=== PATIENT | female | born 1975 | race Caucasian/White ===

== ENCOUNTER → 2017-05-10 | Outpatient (CLI) | payer BC ==
--- NOTE | 2017-05-10 13:18 | MM ---
Reason for exam: screening (asymptomatic). Baseline mammogram. Physical Findings: Nurse did not find any significant physical abnormalities on exam. MG 3D Screening Mammo W/Cad Bilateral CC and MLO view(s) were taken. The breast tissue is heterogeneously dense. This may lower the sensitivity of mammography. Nodular density left MLO view, additional views recommended. These results were verbally communicated with the patient and result sheet given to the patient on 05/10/17. ASSESSMENT: Incomplete: need additional imaging evaluation, BI-RAD 0 RECOMMENDATION: Special view mammogram and ultrasound of the left breast. [facility] will attempt to contact patient to return for supplemental views and ultrasound.
--- NOTE | 2017-05-10 13:19 | MM ---
Reason for exam: additional evaluation requested from abnormal screening. Physical Findings: Breast exam preformed at baseline screening. MG 3D Work Up W/Cad LT CC and MLO view(s) were taken of the left breast. Nodule persists, ultrasound recommended. These results were verbally communicated with the patient and result sheet given to the patient on 05/10/17. ASSESSMENT: Incomplete: need additional imaging evaluation, BI-RAD 0 RECOMMENDATION: Ultrasound of the left breast.
--- NOTE | 2017-05-10 13:21 | USB ---
Reason for exam: additional evaluation requested from abnormal screening. US Breast Workup Limited LT Left breast ultrasound demonstrates a 0.9 x 0.9 x 0.6cm oval, cystic lesion at 3 o'clock, a 0.4 x 0.7 x 0.2cm mixed lesion at 3 o'clock, a 0.5 x 0.7 x 0.4cm oval, cystic cluster at 5 o'clock, a 0.2 x 0.3 x 0.2cm oval lesion too small to characterize at 8 o'clock and a 0.6 x 0.7 x 0.3cm oval, cystic lesion at 9 o'clock. These results were verbally communicated with the patient and result sheet given to the patient on 05/10/17. ASSESSMENT: Benign, BI-RAD 2 RECOMMENDATION: Return to routine screening mammogram schedule for both breasts.
== END | disposition home or self-care (01) ==
LOC: RADMAMWWP 10:49
PROVIDERS: ATTEND Obstetrics & Gynecology
DX: Z12.31 Encounter for screening mammogram for malignant neoplasm of breast (principal); R92.8 Other abnormal and inconclusive findings on diagnostic imaging of breast
CPT/HCPCS: 77067; 77065; 77063; 76642; G0279

== ENCOUNTER → 2018-01-01 | Outpatient (CLI) | payer BC ==
[2018-01-01 08:57] LABS: Basophils # (A) 0.1 k/uL (0-0.2); Basophils % (A) 1 %; Eosinophils # (A) 0.2 k/uL (0-0.7); Eosinophils % (A) 3 %; HCT 41.6 % (34.0-46.0); HGB 13.5 gm/dL (11.4-16.0); Lymphocytes # (A) 1.6 k/uL (1.0-4.8); Lymphocytes % (A) 28 %; MCH 29.4 pg (25.0-35.0); MCHC 32.4 g/dL (31.0-37.0); MCV 90.7 fL (80.0-100.0); Mean Platelet Volume 6.8; Monocytes # (A) 0.3 k/uL (0-1.0); Monocytes % (A) 6 %; Neutrophils # (A) 3.5 k/uL (1.3-7.7); Neutrophils % (A) 61 %; Platelet Count 246 k/uL (150-450); RBC 4.59 m/uL (3.80-5.40); RDW 12.7 % (11.5-15.5); WBC 5.8 k/uL (3.8-10.6)
== END | disposition home or self-care (01) ==
LOC: LABPAT 07:14
PROVIDERS: ATTEND Obstetrics & Gynecology
DX: Z01.812 Encounter for preprocedural laboratory examination (principal); N92.1 Excessive and frequent menstruation with irregular cycle
CPT/HCPCS: 36415; 85025

== ENCOUNTER 2018-01-12 07:11 | Day surgery (SDC) | payer BC ==
[2018-01-10 08:14] VITALS: BMI 24.2
--- NOTE | 2018-01-11 11:15 | HP ---
HISTORY AND PHYSICAL DATE OF SURGERY: 01/12/2018 HISTORY OF PRESENT ILLNESS: The patient is a 6, para 2-0-2-2 who presented to the office with continuing and increasing complaints of significantly heavy and long menstrual cycles. She reports that she bleeds through protection on a fairly regular basis and her cycles are lasting for at least 7-10 days, though they are at least regular and predictable at this time. Her partner has had a vasectomy and she is interested in the NovaSure endometrial ablation. PAST MEDICAL HISTORY: None. PAST SURGICAL HISTORY: Significant for ectopic with diagnostic laparoscopy and salpingostomy in 2004 and then a foot surgery in 2008. She has had no anesthetic concerns. OBSTETRICAL HISTORY: 6, para 2-0-2-2 with 2 term vaginal deliveries without complications as well as one right ectopic and an early miscarriage not requiring the D and C. Current method of contraception is vasectomy. GYNECOLOGIC HISTORY: Unremarkable with no history of any infections to include STDs. FAMILY HISTORY: Noncontributory. SOCIAL HISTORY: Patient is and works as a teacher in the [employer]. She is a nonsmoker and denies any significant alcohol, drugs, or any other social concerns. CURRENT MEDICATIONS: None. ALLERGIES: She had some lip swelling with IBUPROFEN and also seasonal allergies. REVIEW OF SYSTEMS: Confined to history of present illness. PHYSICAL EXAMINATION: Vital signs are stable. The patient is afebrile. In general, this is a well- developed, well-nourished white female in no acute distress. Her heart has a regular rhythm and rate without murmur. Her lungs are clear to auscultation bilaterally in all fernandez. Her abdomen is nondistended, has normoactive bowel sounds, is soft, nontender, and without any palpable masses, hepatosplenomegaly, or hernias. Her extremities are without any cyanosis, clubbing, or edema and are nontender to palpation. Pelvic examination demonstrates normal external genitalia and BUS with normal vaginal mucosa and cervix. There is no cervical motion tenderness. Uterus is approximately 5 weeks in size, mid plane, mobile, nontender, normal in shape. The adnexa are normal and nontender without mass bilaterally. Endometrial biopsy performed at the time of exam demonstrated benign findings. ASSESSMENT AND PLAN: Menometrorrhagia: We did discuss options for treatment and the patient has settled on diagnostic hysteroscopy with NovaSure endometrial ablation. The risks and complications of the procedures have been discussed at length including the risk for bleeding, bleeding requiring transfusion, infection, and injury to local structures to specifically include uterine perforation, Asherman syndrome, and possible hematometra. She has understood all this and has agreed to proceed. At this time, we are scheduled for diagnostic hysteroscopy with NovaSure endometrial ablation on the morning of 01/12/2018. MMODL / IJN: [id number] /
[~2018-01-12 07:11] MED LIST: DEXAMETHASONE SOD PHOSPHATE 10 MG/ML 1 ML VIAL IV ONE; HYDROmorphone 1 MG/ML 1 ML SYRINGE IVP PRN; LACTATED RINGERS 1,000 ML IV SCH; MIDAZOLAM 2 MG/2 ML VIAL IV PRN; ONDANSETRON 4 MG/2 ML VIAL IVP ONE; Pre Op ABX Message 1 EACH MISC MISCELLANE ONE; SCOPOLAMINE 1.5MG/72HR PATCH TRANSDERM ONE
[2018-01-12] MEDS ORDERED: LIDOCAINE 1% 20 ML VIAL (10MG/ML) FOR IV START INTRADERMA ONE (07:31)
[2018-01-12] MEDS ORDERED: MIDAZOLAM 2 MG/2 ML VIAL ONE (08:25)
[2018-01-12] MEDS ORDERED: LIDOCAINE 1% INJ 10MG/ML (20 ML MDV) ONE (08:25)
[2018-01-12] MEDS ORDERED: fentaNYL (PF) 50 MCG/ML 2 ML AMP ONE (08:25)
[2018-01-12] MEDS ORDERED: PROPOFOL 10 MG/ML 20 ML VIAL IV ONE (08:25)
[2018-01-12] MEDS ORDERED: Acetaminophen-Codeine 300-30mg TAB PO PRN ×2 (08:27)
[2018-01-12] MEDS ORDERED: SIMETHICONE 80 MG CHEWABLE PO PRN (08:27)
[2018-01-12] MEDS ORDERED: METOCLOPRAMIDE 5 MG/ML 2 ML VIAL IVP PRN (08:27)
[2018-01-12] MEDS ORDERED: diphenhydrAMINE 50 MG/ML 1 ML VIAL IVP PRN (08:27)
[2018-01-12] MEDS ORDERED: ONDANSETRON 4 MG/2 ML VIAL IVP PRN (08:27)
[2018-01-12] MEDS ORDERED: LACTATED RINGERS 1,000 ML IV SCH (08:30)
--- NOTE | 2018-01-12 09:00 | P.OP ---
Date of Procedure: 01/12/18 Preoperative Diagnosis: #1. Menometrorrhagia Postoperative Diagnosis: Same Procedure(s) Performed: #1. Diagnostic hysteroscopy #2. NovaSure endometrial ablation Anesthesia: other (Gen. by LMA) Surgeon: Ellis Patel Estimated Blood Loss (ml): 5 IV fluids (ml): 350 Urine output (ml): 100 Pathology: none sent Condition: stable Disposition: PACU Operative Findings: Preoperative pelvic examination demonstrated a roughly 5 week midplane mobile normal shaped uterus with normal adnexa bilaterally. Intraoperatively, the cervix sounded to approximately 3 cm while the uterus was approximately 9 cm. The hysteroscopic view of the cavity was somewhat obscured secondary to poor lighting but the bilateral tubal ostial regions were seen. There did not appear to be any pathology throughout the cavity. The settings for the NovaSure tool where a length of 6.0 cm, a width of 4.8 cm for a total power 158 W. After a total run time of 74 seconds, the base unit read "procedure complete." The postprocedural result appeared to be excellent. The patient is a candidate for vaginal hysterectomy should it become necessary in the future. Description of Procedure: The patient was prepped and draped in usual fashion after general anesthesia was administered by the anesthesiologist. A weighted speculum was placed and the bladder drained of approximately 100 mL of clear sia urine. The anterior lip of the cervix was grasped with a single-tooth tenaculum and the uterus and cervix sounded to 9 cm and 3 cm respectively. Serial dilation was carried out to admit the diagnostic hysteroscope which was placed to the fundus and hysteroscopy performed. The bilateral tubal ostia regions weren't seen and there was no apparent pathology throughout the cavity. After the cavity been cleared of any pathology, the scope was removed and set aside and the NovaSure tool placed within the endometrial cavity, opened, and seated well. The settings are as noted above with a length of 6.0 cm, a width of 4.8 cm for total power 158 W. The cavity check was attempted and passed without difficulty. The tool was enabled and the run was started. After total run time of 74 seconds, the base unit read "procedure complete." The 2 was closed, removed, and discarded and the diagnostic hysteroscope replaced within the endometrial cavity. The result appeared to be excellent throughout. All instrumentation was then removed. Some ongoing bleeding from both tenaculum sites was made hemostatic with pressure. Estimated blood loss for the case was approximately 5 mL or less. There were no complications. All sponge, instrument, and needle counts were correct. The patient is a potential candidate for vaginal hysterectomy as there is descensus of the cervix to the opening of the vagina. The patient tolerated the procedure well and proceeded to the recovery room in stable condition.
[2018-01-12 09:07] VITALS: TEMP 98.6
[2018-01-12 09:36] VITALS: RESP 16
[2018-01-12 10:27] VITALS: BP 117/62; PULSE 72
== END 2018-01-12 10:33 | disposition home or self-care (01) ==
LOC: OR 07:11
PROVIDERS: ATTEND Obstetrics & Gynecology
DX: N92.1 Excessive and frequent menstruation with irregular cycle (principal); J30.2 Other seasonal allergic rhinitis; Z88.6 Allergy status to analgesic agent
CPT/HCPCS: 81025; 58563; J2250; J1100; J2405; J2001; J3010; J2704

== ENCOUNTER → 2021-09-30 | Outpatient (CLI) | payer BC ==
--- NOTE | 2021-10-01 14:30 | MM ---
Reason for Exam: Screening (asymptomatic). Last mammogram was performed 4 year(s) and 5 month(s) ago. Patient History: Menarche at age 14. First Full-Term at age 26. Risk Values: Jessica 5 year model risk: 0.7%. NCI Lifetime model risk: 8.7%. Prior Study Comparison: 05/10/2017 Bilateral Screening Mammogram, [facility]. 05/10/2017 Left Diagnostic Mammogram, [facility]. Tissue Density: The breast tissue is heterogeneously dense. This may lower the sensitivity of mammography. Findings: Analyzed By CAD. There is no suspicious group of microcalcifications. More prominent asymmetry in the left breast in the anterior depth on the MLO view. Overall Assessment: Incomplete: need additional imaging evaluation, BI-RAD 0 Management: Diagnostic Mammogram of the left breast. A clinical breast exam by your physician is recommended on an annual basis and results should be correlated with mammographic findings. [facility] will attempt to contact patient to return for supplemental views and ultrasound if indicated. Electronically signed and approved by: Shree Garner D.O.
== END | disposition home or self-care (01) ==
LOC: RADMAMWWP 15:02
PROVIDERS: ATTEND Obstetrics & Gynecology
DX: Z12.31 Encounter for screening mammogram for malignant neoplasm of breast (principal)
CPT/HCPCS: 77063; 77067

== ENCOUNTER → 2021-10-07 | Outpatient (CLI) | payer BC ==
--- NOTE | 2021-10-07 10:57 | MM ---
Reason for Exam: Additional evaluation requested from abnormal screening. Last screening mammogram was performed less than 1 month ago. Patient History: Menarche at age 14. First Full-Term at age 26. Risk Values: Jessica 5 year model risk: 0.7%. NCI Lifetime model risk: 8.7%. Prior Study Comparison: 05/10/2017 Bilateral Screening Mammogram, [facility]. 05/10/2017 Left Diagnostic Mammogram, [facility]. 09/30/2021 Bilateral MG 3D screening mammo w/cad, [facility]. Tissue Density: Left: The breast tissue is heterogeneously dense. This may lower the sensitivity of mammography. Findings: Analyzed By CAD. On spot 3-D images, there is a persisting oval, mildly lobulated 2.5 x 1.5 cm mass 6:00 position anterior depth. Further ultrasound evaluation is recommended. Overall Assessment: Incomplete: need additional imaging evaluation, BI-RAD 0 Management: Diagnostic Breast Ultrasound of the left breast. For the 6:00 mass or cyst. Electronically signed and approved by: Zaheer Pat M.D. Radiologist
--- NOTE | 2021-10-07 12:31 | USB ---
Reason for Exam: Additional evaluation requested from abnormal screening. Patient History: Menarche at age 14. First Full-Term at age 26. Risk Values: Jessica 5 year model risk: 0.7%. NCI Lifetime model risk: 8.7%. Prior Study Comparison: 05/10/2017 Bilateral Screening Mammogram, [facility]. 05/10/2017 Left Diagnostic Mammogram, [facility]. 09/30/2021 Bilateral MG 3D screening mammo w/cad, [facility]. Findings: The lower section of the breast of the left breast, the axilla of the left breast and the retroareolar of the left breast were scanned. Targeted scanning left breast 4-8 o'clock shows multiple benign cysts, the largest the 5:00 position, 2 cm in the nipple measures 2.3 x 1.7 x 0.7 cm. Likely mammographic correlate. Six-month follow-up mammogram recommended to reassess. No solid lesion is seen. Overall Assessment: Probably benign, BI-RAD 3 Management: Diagnostic Mammogram of the left breast in 6 months. To reassess the new mammographic mass that most likely corresponds to the benign 2.3 cm cyst on ultrasound. Continue monthly self breast exams. Electronically signed and approved by: Zaheer Pat M.D. Radiologist
== END | disposition home or self-care (01) ==
LOC: RADMAMWWP 10:18
PROVIDERS: ATTEND Obstetrics & Gynecology
DX: R92.8 Other abnormal and inconclusive findings on diagnostic imaging of breast (principal)
CPT/HCPCS: 77061; 77065

== ENCOUNTER → 2022-12-28 | Outpatient (CLI) | payer BC ==
--- NOTE | 2022-12-29 12:33 | MM ---
Reason for Exam: Screening (asymptomatic). Last mammogram was performed 1 year(s) and 3 month(s) ago. Patient History: Menarche at age 14. First Full-Term at age 26. Patient has history of breast feeding. Risk Values: Jessica 5 year model risk: 0.7%. NCI Lifetime model risk: 8.6%. Prior Study Comparison: 05/10/2017 Bilateral Screening Mammogram, [facility]. 05/10/2017 Left Diagnostic Mammogram, [facility]. 09/30/2021 Bilateral MG 3D screening mammo w/cad, [facility]. 10/07/2021 Left MG 3D work up w/cad LT, [facility]. 05/18/2022 Left MG 3D diag mammo w/cad LT, [facility]. Tissue Density: The breast tissue is heterogeneously dense. This may lower the sensitivity of mammography. Findings: Analyzed By CAD. Area left breast 5.2 centers nipple measuring 14 mm on MLO view and slightly medial and 2.0 cm the nipple on CC view appears more prominent on today's exam. Right breast: There is no suspicious group of microcalcifications or new suspicious mass. Overall Assessment: Incomplete: need additional imaging evaluation, BI-RAD 0 Management: Diagnostic Breast Ultrasound of the left breast. [facility] will attempt to contact patient to return for supplemental views and ultrasound if indicated. Patient should continue monthly self-breast exams. A clinical breast exam by your physician is recommended on an annual basis. This exam should not preclude additional follow-up of suspicious palpable abnormalities. Note on Jessica scores and lifetime risk: 1. A Jessica score greater than 3% is considered moderate risk. If this is the case, consider specialist referral to assess eligibility for a risk reducing agent. 2. If overall lifetime risk for the development of breast cancer is 20% or higher, the patient may qualify for future screening with alternating mammogram and breast MRI. Electronically signed and approved by: Cameron Mendiola DO
== END | disposition home or self-care (01) ==
LOC: RADMAMWWP 12:01
PROVIDERS: ATTEND Obstetrics & Gynecology
DX: Z12.31 Encounter for screening mammogram for malignant neoplasm of breast (principal)
CPT/HCPCS: 77063; 77067

== ENCOUNTER → 2023-01-20 | Outpatient (CLI) | payer BC ==
--- NOTE | 2023-01-20 15:06 | USB ---
Reason for Exam: Additional evaluation requested from abnormal screening. Patient History: Menarche at age 14. First Full-Term at age 26. Patient has history of breast feeding. Risk Values: Jessica 5 year model risk: 0.7%. NCI Lifetime model risk: 8.6%. Technique: Method: Whole Breast Handheld. Prior Study Comparison: 10/07/2021 Left MG 3D work up w/cad LT, [facility]. 05/18/2022 Left MG 3D diag mammo w/cad , [facility]. 12/28/2022 Bilateral MG 3D screening mammo w/cad, [facility]. Findings: The whole breast of the left breast, the axilla of the left breast and the retroareolar of the left breast were scanned. Complete ultrasound of the left breast was performed with additional evaluation of the nipple and axilla. Multiple thin-walled simple cysts identified within the left breast. Examples include a cyst at 2:00 6 cm of the nipple measuring 1.0 x 0.4 x 0.8 cm. Additional cysts within the left breast at 3:00 there is a node measuring 1.5 x 0.7 x 1.3 cm. Largest cyst is within the left breast at 5:00 2 cm in the nipple measuring 2.9 x 1.0 x 2.1 cm. Overall Assessment: Benign, BI-RAD 2 Management: Screening Mammogram of both breasts in 1 year. A clinical breast exam by your physician is recommended on an annual basis and results should be correlated with mammographic findings. This exam should not preclude additional follow-up of suspicious palpable abnormalities. Results were given to the patient verbally at the time of exam. Electronically signed and approved by: Shree Garner D.O.
== END | disposition home or self-care (01) ==
LOC: RADUSWWP 14:17
PROVIDERS: ATTEND Obstetrics & Gynecology
DX: R92.8 Other abnormal and inconclusive findings on diagnostic imaging of breast (principal)

== ENCOUNTER → 2023-03-09 | Outpatient (CLI) | payer BC ==
--- NOTE | 2023-03-09 13:33 | US ---
EXAMINATION TYPE: US venous doppler duplex LE LT DATE OF EXAM: 03/09/2023 1:17 PM COMPARISON: NONE CLINICAL INDICATION: Female, 48 years old with history of M79.662 PAIN IN L LEG R22.42 SWELLING LEG; Left upper medial/posterior tenderness redness. No long journeys. Not on blood clots. SIDE PERFORMED: Left TECHNIQUE: The lower extremity deep venous system is examined utilizing real time linear array sonog patria with graded compression, doppler sonography and color-flow sonography. VESSELS IMAGED: Common Femoral Vein Deep Femoral Vein Greater Saphenous Vein * Femoral Vein Popliteal Vein Small Saphenous Vein * Proximal Calf Veins (* superficial vessels) Left Leg: Negative for DVT. Positive for SVT at area of concern in upper calf. IMPRESSION: 1. No evidence for DVT within the left lower extremity. 2. Positive for SVT at the area of concern along the posteromedial calf.
== END | disposition home or self-care (01) ==
LOC: RADUSWWP 12:49
PROVIDERS: ATTEND Family Medicine
DX: I47.10 Supraventricular tachycardia, unspecified (principal); R22.42 Localized swelling, mass and lump, left lower limb

== ENCOUNTER → 2023-03-20 | Outpatient (CLI) | payer BC ==
[2023-03-20 15:10] LABS: Basophils # (A) 0.06 X 10*3/uL (0.00-0.10); Basophils % (A) 0.6 %; Eosinophils # (A) 0.19 X 10*3/uL (0.04-0.35); Eosinophils % (A) 1.8 %; HCT 43.6 % (37.2-46.3); HGB 14.1 g/dL (12.0-15.0); Lymphocytes # (A) 2.01 X 10*3/uL (0.90-5.00); Lymphocytes % (A) 18.6 %; MCH 29.8 pg (27.0-32.0); MCHC 32.3 g/dL (32.0-37.0); MCV 92.2 FL (80.0-97.0); Mean Platelet Volume 10.8 FL (9.5-12.2); Monocytes # (A) 0.76 X 10*3/uL (0.20-1.00); NRBC Per 100 WBC 0 X 10*3/uL (0.00-0.01); Neutrophils # (A) 7.76 X 10*3/uL (1.80-7.70); Neutrophils % (A) 71.6 %; Platelet Count 235 X 10*3/uL (140-440); RBC 4.73 X 10*6/uL (4.10-5.20); RDW 12.5 % (11.5-14.5); WBC 10.82 X 10*3/uL (4.50-10.00)
[2023-03-20 15:28] LABS: Blood Urea Nitrogen 12.7 mg/dL (9.0-27.0); Carbon Dioxide 25.5 mmol/L (21.6-31.8); Chloride 104 mmol/L (96-109); Glucose 85 mg/dL (70-110); Magnesium 2.2 mg/dL (1.5-2.4); Sodium 139 mmol/L (135-145)
[2023-03-20 16:48] LABS: Appearance,Urine Clear (Clear); Bilirubin,Urine Negative (Negative); Blood,Urine Negative (Negative); Color,Urine Yellow (Yellow); Ketones,Urine Negative (Negative); Nitrite,Urine Negative (Negative); PH, Urine 5.5; Specific Gravity,Urine 1.008 (1.001-1.030); Urobilinogen,Urine 0.2 E.U./DL
== END | disposition home or self-care (01) ==
LOC: LABPAT 06:50
PROVIDERS: ATTEND Obstetrics & Gynecology
DX: Z01.812 Encounter for preprocedural laboratory examination (principal); N93.8 Other specified abnormal uterine and vaginal bleeding
CPT/HCPCS: 80051; 81003; 82565; 82947; 83735; 84520; 85025; 86850; 86900; 86901

== ENCOUNTER 2023-03-29 06:35 | Day surgery (SDC) | payer BC ==
--- NOTE | 2023-03-28 18:12 | P.GSHP ---
History of Present Illness H&P Date: 03/28/23 48 yo female with dysfunctional uterine bleeding and heidi who comes for a vaginal hysterectomy and a TOT for heidi. SHe was seen by my and identified to have classic heidi by histroy and physical exam. We discussed treatment options as well as the risks and complications of the procedure including infection, bleeding, injury to adjacent organs, persistent incontinence,retention, erosion dyspareunia among other things. - Constitutional Constitutional: Denies chills, Denies fever - EENT Eyes: denies blurred vision, denies pain Ears, nose, mouth and throat: Denies headache, Denies sore throat - Cardiovascular Cardiovascular: Denies chest pain, Denies shortness of breath - Respiratory Respiratory: Denies cough, Denies 7 - Gastrointestinal Gastrointestinal: Denies abdominal pain, Denies diarrhea, Denies nausea, Denies vomiting - Genitourinary (Female) Genitourinary: Denies dysuria, Denies hematuria - Genitourinary (Male) Genitourinary: Denies dysuria, Denies hematuria - Musculoskeletal Musculoskeletal: Denies myalgias - Integumentary Integumentary: Denies pruritus, Denies rash - Neurological Neurological: Denies numbness, Denies weakness - Psychiatric Psychiatric: Denies anxiety, Denies depression - Endocrine Endocrine: Denies fatigue, Denies weight change Past Medical History Past Medical History: Hyperlipidemia Additional Past Medical History / Comment(s): recent superficial phlebitis to left leg tx with steroid, U/S taken, both surgeons are aware per pt. recent fluid in rt ear tx with abx, no meds for cholesterol. urinary leakage. almost continuous menses sometime light sometimes heavier. History of Any Multi-Drug Resistant Organisms: None Reported Additional Past Surgical History / Comment(s): foot surgery. tubal . Past Anesthesia/Blood Transfusion Reactions: Postoperative Nausea & Vomiting (PONV) Smoking Status: Former smoker, Light tobacco smoker - Past Family History Father Family Medical History: Myocardial Infarction (PR) Medications and Allergies Home Medications Medication Instructions Recorded Confirmed Type Unk Multi Vitamin 1 tab PO DAILY 03/23/23 03/23/23 History Allergies Allergy/AdvReac Type Severity Reaction Status Date / Time ibuprofen Allergy Anaphylaxis Verified 03/23/23 10:08 Surgical - Exam - General well developed, well nourished, no distress - Genitourinary hypermobile urethra with heidi and a positive fazal test Assessment and Plan Assessment: Impression: dysfunctional uterine bleeding, stress urinary incontinence, Plan: vaginal hysterectomy, transobturator tape
[~2023-03-29 06:35] MED LIST changes: +AMPICILLIN 1,000 MG in SODIUM CHLORIDE 0.9% 50 ML IVPB PRN; -DEXAMETHASONE SOD PHOSPHATE 10 MG/ML 1 ML VIAL IV ONE; +GENTAMICIN 100 MG in SODIUM CHLORIDE 0.9% 100 ML IVPB PRN; -HYDROmorphone 1 MG/ML 1 ML SYRINGE IVP PRN; -LACTATED RINGERS 1,000 ML IV SCH; -MIDAZOLAM 2 MG/2 ML VIAL IV PRN; -ONDANSETRON 4 MG/2 ML VIAL IVP ONE; -Pre Op ABX Message 1 EACH MISC MISCELLANE ONE; -SCOPOLAMINE 1.5MG/72HR PATCH TRANSDERM ONE
[2023-03-29] MEDS ORDERED: DEXAMETHASONE SOD PHOSPHATE 4 MG/ML 1 ML VIAL IV ONE (07:00)
[2023-03-29] MEDS ORDERED: ONDANSETRON 4 MG/2 ML VIAL IVP ONE (07:00)
[2023-03-29] MEDS ORDERED: HYDROmorphone 0.5 MG/0.5 ML SYRINGE IVP PRN (07:00)
[2023-03-29] MEDS: LACTATED RINGERS 1,000 ML IV SCH ×4 (07:16→23:35)
[2023-03-29] MEDS ORDERED: MIDAZOLAM 2 MG/2 ML VIAL IVP ONE (07:45)
[2023-03-29] MEDS ORDERED: fentaNYL (PF) 50 MCG/ML 2 ML AMP IVP ONE (07:45)
[2023-03-29] MEDS ORDERED: SCOPOLAMINE 1 MG/72 HR PATCH TRANSDERM ONE (07:45)
[2023-03-29] MEDS ORDERED: VASOPRESSIN 20 UNIT/ML 1 ML VIAL SQ ONE ×2 (08:56→09:52)
--- NOTE | 2023-03-29 09:19 | P.ANPRN ---
Procedure Note - Anesthesia - Epidural/Spinal Spinal Time Out Performed: Yes Date of Procedure: 03/29/23 Procedure Start Time: 07:45 Procedure Stop Time: 07:50 Location of Patient: PreOp Indication: Acute Post-Operative Pain, Requested by Surgeon Sedation Type: Sedate with meaningful contact maintained Preparation: Sterile Prep Position: Sitting Needle Guage: 25 Blood Aspirated: No Pain Paresthesia on Injection Noted: No Events: Uneventful and Well Tolerated (fentanyl 25 mics plus duramorph 200 mics)
[2023-03-29] MEDS ORDERED: ONDANSETRON 4 MG/2 ML VIAL IVP PRN (09:58)
[2023-03-29] MEDS ORDERED: KETOROLAC 15 MG/ML 1 ML VIAL IVP PRN (09:58)
[2023-03-29] MEDS ORDERED: Acetaminophen-Codeine 300-30mg TAB PO PRN (09:58)
[2023-03-29] MEDS ORDERED: diphenhydrAMINE 50 MG/ML 1 ML VIAL IVP PRN (09:58)
[2023-03-29] MEDS ORDERED: METOCLOPRAMIDE 5 MG/ML 2 ML VIAL IVP PRN (09:58)
[2023-03-29] MEDS ORDERED: SIMETHICONE 80 MG CHEWABLE PO PRN (09:58)
[2023-03-29] MEDS ORDERED: BACITRACIN ZINC 500 UNIT/GM OINT 28.4 GM TUBE TOPICAL ONE (10:06)
--- NOTE | 2023-03-29 10:07 | P.OP ---
Date of Procedure: 03/29/23 Preoperative Diagnosis: #1. Menometrorrhagia #2. Failed endometrial ablation #3. Uterine prolapse Postoperative Diagnosis: Same Procedure(s) Performed: #1. Vaginal hysterectomy #2. Bilateral salpingectomy Anesthesia: KRUPA Surgeon: Ellis Patel Well Head Pumper #1: Victoria Horn Estimated Blood Loss (ml): 200 IV fluids (ml): 500 Urine output (ml): 100 Pathology: other (Uterus and bilateral fallopian tubes) Condition: stable Disposition: PACU Operative Findings: Preoperative pelvic examination demonstrated grade 2+ uterine prolapse with a very large and patulous cervix. The adnexa were normal bilaterally. Intraoperatively, the bilateral ovaries were normal to inspection. The fallopian tubes were amenable to safely be removed and were therefore removed and sent with the specimen for pathology. There was no significant cystocele or rectocele present. Description of Procedure: The patient was prepped and draped in usual fashion after general endotracheal anesthesia was administered by the anesthesiologist. A weighted speculum was placed and the bladder drained of approximately 100 mL of clear sia urine. The cervix was grasped with a double-tooth tenaculum and the cervicovaginal mucosa infused with diluted vasopressin solution. It was then divided sharply with a scalpel circumferentially and reflected distally both sharply and bluntly. After adequate reflection, the posterior peritoneum was identified and incised sharply with the Campbell scissors, then tagged with a stitch of 2-0 Vicryl for later use. The short weighted speculum was replaced the long weighted speculum. The uterosacral ligaments on each side were clamped with a curved Marian-Fairfax clamp, cut, and suture-ligated with a transfixion stitch of 0 Vicryl. Serial bites were taken up the cardinal ligament towards the utero- ovarian ligaments on each side. Each was clamped, cut, and suture-ligated with a transfixion stitch of 0 Vicryl. After several bites on either side, the uterus was inverted posteriorly and the interior peritoneum identified and incised sharply with the Bovie. This isolated the utero-ovarian ligaments on each side which were clamped with curved Marian-Fairfax clamps, cut, and suture-ligated with a transfixion stitch of 0 Vicryl followed by a free tie of 0 Vicryl. The bilateral fallopian tubes were noted to be in the field and each was clamped with a curved Marian-Fairfax clamp, cut, and included with the specimen. Each pedicle was then suture-ligated with a transfixion stitch of 0 Vicryl. Any small points of bleeding at the utero-ovarian pedicles were made hemostatic with the Bovie. The long weighted speculum was then replaced with the short weighted speculum after ensuring normal ovarian architecture bilaterally. The previously placed stitch of 2-0 Vicryl was utilized to close the parietal peritoneum in a running pursestring stitch. There was some ongoing bleeding near the right uterosacral ligament which was made hemostatic with the Bovie and then further incorporated into the closure of the vaginal cuff for hemostasis. The bilateral uterosacral ligament pedicles were passed through the contralateral side as well as the vaginal cuff and then tied down firmly in a modified Mejia's culdoplasty. The intervening open vaginal cuff was closed with interrupted [id number] stitches of 0 Vicryl. The patient was then given to Dr. Aguilar for his portion of the procedure which was to include a Monarc suburethral sling. At the time of passing the patient off, as noted blood loss was 200 mL. There were no complications to my portion of the procedure. All sponge, instrument, needle counts were correct. The patient was passed to Dr. Aguilar in stable condition.
--- NOTE | 2023-03-29 10:24 | P.OP ---
Date of Procedure: 03/29/23 Preoperative Diagnosis: Stress urinary incontinence Postoperative Diagnosis: Same Procedure(s) Performed: Trans-obturator tape (obtyrx) with cystoscopy Anesthesia: KRUPA Surgeon: James Aguilar Estimated Blood Loss (ml): 25 Pathology: none sent Condition: stable Disposition: PACU Indications for Procedure: The patient is 48. She has dysfunctional uterine bleeding and stress urinary incontinence. He comes for a vaginal hysterectomy (Dr. Patel) and a trans- obturator tape by myself Description of Procedure: The patient has previously been in the operating room anesthetized and Dr. Patel his performed a vaginal hysterectomy. A vaginal speculum is in place. I introduced a Penn catheter. I elevate the anterior vaginal mucosa off the submucosa with 10 mL of 200 Pitressin in 200 mL of saline. A midline suburethral incision is made. I dissect lateral the bladder neck bilaterally. I then make 2 incisions in the inguinal crease at the level of the clitoris. I then pass the trans-obturator tape introducers through the inguinal incisions into the pre-pubic space into the vagina bilaterally. I then remove the Penn catheter introduced a 17-Panamanian cystoscope into the bladder to make sure there is no evidence of bladder or urethral injury and there is none. Both ureteral orifices are normal. I then replaced the Penn catheter. I attached the grafted introducers and pull the graft back through the obturator foramen bilaterally. The graft lays in the mid urethra without tension. I removed the redundant sheathing. I closed the vaginal closed with 2-0 Vicryl. I excised the redundant graft at the level of the inguinal incisions. I closed the inguinal incisions with 4-0 Monocryl. The vaginal speculum was removed. Vaginal packing is placed. The urine remains clear. The blood loss for my portion of the procedures 25 mL. The patient is awakened and returned recovery room in good condition.
[2023-03-29] MEDS ORDERED: droPERidol 5 MG/2 ML VIAL IVP ONE (11:09)
[2023-03-29] MEDS: ACETAMINOPHEN TAB 325 MG TAB PO PRN ×2 (17:35→23:33)
[2023-03-29] MEDS: SENNOSIDES-DOCUSATE SODIUM 1 EACH TAB PO SCH (19:50)
[2023-03-29 21:46] VITALS: RESP 16
--- NOTE | 2023-03-30 06:33 | P.PN ---
Progress Note - Text Progress Note Date: 03/30/23 S/P hysterectopmy with spinal Duramorph. Post Op day #1. Pain control is adequate 0-1 out of 10. No anesthesia related complications.
[2023-03-30 07:18] VITALS: TEMP 98.6
[2023-03-30 07:24] LABS: Basophils % (A) 0 %; Eosinophils # (A) 0.1 k/uL (0-0.7); Eosinophils % (A) 1 %; HCT 37.6 % (34.0-46.0); HGB 12.4 gm/dL (11.4-16.0); Lymphocytes # (A) 2.2 k/uL (1.0-4.8); Lymphocytes % (A) 20 %; MCH 30.4 pg (25.0-35.0); MCHC 32.8 g/dL (31.0-37.0); MCV 92.5 fL (80.0-100.0); Mean Platelet Volume 7.9; Monocytes # (A) 0.6 k/uL (0-1.0); Monocytes % (A) 5 %; Neutrophils # (A) 8.1 k/uL (1.3-7.7); Neutrophils % (A) 73 %; Platelet Count 252 k/uL (150-450); RBC 4.07 m/uL (3.80-5.40); RDW 12.7 % (11.5-15.5); WBC 11.1 k/uL (3.8-10.6)
[2023-03-30] MEDS: LACTATED RINGERS 1,000 ML IV SCH ×2 (07:43)
[2023-03-30] MEDS: SENNOSIDES-DOCUSATE SODIUM 1 EACH TAB PO SCH (07:44)
[2023-03-30 08:04] VITALS: BP 106/62; PULSE 54
--- NOTE | 2023-03-30 08:52 | P.DS ---
Providers Expected date of discharge: 03/30/23 Attending physician: James Aguilar Primary care physician: Kush Abrams - Discharge Diagnosis(es) (1) YUE (stress urinary incontinence, female) Current Visit: Yes Status: Acute (2) History of endometrial ablation Current Visit: Yes Status: Acute (3) Menometrorrhagia Current Visit: Yes Status: Acute Hospital Course: The patient is a 48-year-old 4 para 2021 who underwent NovaSure endometr ial ablation in 2018 which has failed. She is having fairly significant and irregular as well as heavy bleeding. She additionally complains of stress urinary incontinence symptoms and has been evaluated by urology who feels that she would benefit from a Monarc suburethral sling. She was taken the operating room where she underwent a vaginal hysterectomy with bilateral salpingectomy at my hands and on Starks fashion at which time the case was passed to Dr. Aguilar who performed the Monarc suburethral sling in an uncomplicated fashion as well. Her postoperative course was unremarkable with vital signs being stable and her temperature was afebrile throughout. She was deemed stable for discharge on postoperative day #1 pending completing a voiding trial with an adequate ability to void without retention. She was discharged home to follow-up with urology in 1-2 weeks' time and with myself in 6 weeks' time. Discharge instructions included calling for any significantly increased bleeding, GI or complaints, fever, or anything also concerned her. She is additionally instructed to have nothing in the vagina for at least 6 weeks time to include intercourse. She understood all of her instructions and agrees to follow up as noted above. Discharge medications included any home medications as well as a prescription for Tylenol 3, 1-2 by mouth every 6 hours when necessary pain, #20 dispensed with no refills. Discharge hemoglobin and hematocrit were 12.4 and 37.6 respectively. Procedures: #1. Vaginal hysterectomy #2. Bilateral salpingectomy #3. Monarc suburethral sling Patient Condition at Discharge: Stable Plan - Discharge Summary Discharge Rx Participant: No New Discharge Prescriptions: No Action Unk Multi Vitamin 1 tab PO DAILY Discharge Medication List Unk Multi Vitamin 1 tab PO DAILY 03/23/23 [History] Follow up Appointment(s)/Referral(s): Ellis Patel MD [STAFF PHYSICIAN] - 6 Weeks James Aguilar MD [STAFF PHYSICIAN] - 2 Weeks Discharge Disposition: HOME SELF-CARE
[2023-03-30] MEDS ORDERED: ACETAMINOPHEN TAB 325 MG TAB PO PRN (10:00)
[2023-03-30] MEDS: Acetaminophen-Codeine 300-30mg TAB PO PRN ×2 (12:02→15:30)
--- NOTE | 2023-03-30 22:22 | P.PN ---
Subjective Progress Note Date: 03/30/23 Principal diagnosis: POD #1, s/p TOT sling The patient reports significant urinary frequency. Postvoid residuals have been 300-500 mL, her most recent being 300 mL. Objective - Vital Signs Vital signs: Vital Signs Temp 98.6 F 03/30/23 07:42 Pulse 54 L 03/30/23 07:42 Resp 16 03/30/23 07:42 BP 106/62 03/30/23 07:42 Pulse Ox 98 03/30/23 05:00 FiO2 Intake & Output 03/29/23 03/30/23 03/30/23 18:59 06:59 18:59 Intake Total 1751 480 Output Total 2500 3300 1850 Balance -749 -2820 -1850 Weight 79.8 kg Intake: IV 1751 Oral 480 Output: Urine 2300 3300 1850 Uretheral (Penn) 1500 Estimated Blood Loss 200 Other: # Voids 2 - Constitutional General appearance: Present: average body habitus, cooperative, no acute distress - Gastrointestinal General gastrointestinal: Present: soft. Absent: tenderness - Psychiatric Psychiatric: Present: A&O x's 3 - Labs CBC & Chem 7: 03/30/23 06:12 Labs: Abnormal Lab Results - Last 24 Hours (Table) 03/30/23 Range/Units 06:12 WBC 11.1 H (3.8-10.6) k/uL Neutrophils # 8.1 H (1.3-7.7) k/uL Assessment and Plan (1) YUE (stress urinary incontinence, female) Status: Acute Code(s): N39.3 - STRESS INCONTINENCE (FEMALE) (MALE) SNOMED Code(s): 42277239 Plan: Will continue to monitor postvoid residuals. If bladder emptying improves, she will be discharged home and follow up with Dr. Aguilar early next week.
== END 2023-03-30 15:35 | disposition home or self-care (01) ==
LOC: OR 06:35 → 4FBP 10:09 → OR 03-30 15:35
PROVIDERS: ATTEND Urology
DX: N80.03 Adenomyosis of the uterus (principal); N83.8 Other noninflammatory disorders of ovary, fallopian tube and broad ligament; N93.8 Other specified abnormal uterine and vaginal bleeding; N39.3 Stress incontinence (female) (male); N92.1 Excessive and frequent menstruation with irregular cycle; N81.4 Uterovaginal prolapse, unspecified; G89.18 Other acute postprocedural pain; E78.5 Hyperlipidemia, unspecified; I80.9 Phlebitis and thrombophlebitis of unspecified site; Z87.891 Personal history of nicotine dependence; Z82.49 Family history of ischemic heart disease and other diseases of the circulatory system; Z88.6 Allergy status to analgesic agent; Z79.899 Other long term (current) drug therapy
CPT/HCPCS: 81025; 85025; 88307; 58262; 58571; 57288; 64449; C1771; J2250; J1100; J2405; J3010; J1580; J0290; J1790

== ENCOUNTER → 2024-03-14 | Outpatient (CLI) | payer BC ==
--- NOTE | 2024-03-14 09:42 | MM ---
Reason for Exam: Additional evaluation requested from prior study. Last mammogram was performed 1 year(s) and 3 month(s) ago. Patient History: Menarche at age 14. First Full-Term at age 26. Patient has history of breast feeding. Risk Values: Jessica 5 year model risk: 0.8%. NCI Lifetime model risk: 8.4%. Tissue Density: The breasts are heterogeneously dense, which may obscure small masses. Findings: Analyzed By CAD. The pattern is symmetrical. New rounded densities with partially obscured margins are in the left breast. This includes an anterior 1.9 cm area 6:00 position approximately 2 cm from the nipple. An additional 2 cm density is in the 3:00 position approximately 5 cm nipple. In the subareolar right breast there is a 0.9 cm rounded density with partially obscured margins. No suspicious groups of microcalcifications, spiculated or lobular masses, architectural distortion or other secondary signs of malignancy are mammographically apparent. Overall Assessment: Incomplete: need additional imaging evaluation, BI-RAD 0 Management: Diagnostic Breast Ultrasound of both breasts. A negative mammogram report should not preclude additional follow up of suspicious palpable abnormalities. Patient should continue monthly self breast exam. A clinical breast exam by your physician is recommended on an annual basis and results should be correlated with mammographic findings. Note on Jessica scores and lifetime risk: 1. A Jessica score greater than 3% is considered moderate risk. If this is the case, consider specialist referral to assess eligibility for a risk reducing agent. 2. If overall lifetime risk for the development of breast cancer is 20% or higher, the patient may qualify for future screening with alternating mammogram and breast MRI. [facility], , 03/14/2024 9:39 AM. Electronically signed and approved by: Elmo Carlisle D.O. Radiologis
--- NOTE | 2024-03-14 10:48 | USB ---
Reason for Exam: Additional evaluation requested from abnormal screening. Patient History: Menarche at age 14. First Full-Term at age 26. Patient has history of breast feeding. Risk Values: Jessica 5 year model risk: 0.8%. NCI Lifetime model risk: 8.4%. Technique: Method: Targeted. Prior Study Comparison: 10/07/2021 Left MG 3D work up w/cad , [facility]. 05/18/2022 Left MG 3D diag mammo w/cad , [facility]. 12/28/2022 Bilateral MG 3D screening mammo w/cad, [facility]. Findings: The lateral section of the breast of the left breast, the lower section of the breast of the left breast, the medial section of the breast of the right breast, the axilla of both breasts and the retroareolar of both breasts were scanned. Right breast: Within the retroareolar region is a 1.0 x 1.0 x 0.7 cm cyst with good through transmission. Partial septation may be present. Follow-up evaluation in 6 months is recommended. Left breast: At the 3:00 position 5 cm nipple there is a 1.5 x 0.7 x 1.6 cm cyst with good through transmission. Follow-up can be performed. At the 6:00 position 2 cm the bladder is a large complex cyst measuring 2.6 x 1.4 x 2.7 cm. Scattered internal echoes are present. Cyst aspiration recommended. Overall Assessment: Suspicious, BI-RAD 4 Management: Aspiration of the left breast. A clinical breast exam by your physician is recommended on an annual basis and results should be correlated with mammographic findings. This exam should not preclude additional follow-up of suspicious palpable abnormalities. Results were given to the patient verbally at the time of exam. [facility], , 03/14/2024 10:21 AM. Electronically signed and approved by: Elmo Carlisle D.O. Radiologis
== END | disposition home or self-care (01) ==
LOC: RADMAMWWP 09:05
PROVIDERS: ATTEND Family Medicine
DX: R92.8 Other abnormal and inconclusive findings on diagnostic imaging of breast (principal); R92.333 Mammographic heterogeneous density, bilateral breasts
CPT/HCPCS: 77062; 77066

== ENCOUNTER → 2024-04-03 | Day surgery (SDC) | payer BC ==
--- NOTE | 2024-04-09 07:15 | USB ---
Risk Values: Jessica 5 year model risk: 0.8%. NCI Lifetime model risk: 8.4%. Prior Study Comparison: 05/18/2022 Left MG 3D diag mammo w/cad LT, [facility]. 12/28/2022 Bilateral MG 3D screening mammo w/cad, [facility]. 03/14/2024 Bilateral US breast limited BILAT, [facility]. 03/14/2024 Bilateral MG 3D diag mammo w/cad JESUS, [facility]. Pathology Description: Location: 6 o'clock. The mildly lobulated cyst measuring 2.8 cm and containing internal debris is targeted for aspiration. We note a tiny adjacent 6 mm cyst as well. The ultrasound guided cyst aspiration procedure was explained to the patient. The risks, benefits, alternatives were discussed. An informed consent was then obtained. A time out was performed at . The patient was placed in supine positioning for imaging and for the procedure. The overlying skin was prepped with betadine and sterilely draped in usual sterile fashion. 6 ml 1% lidocaine (mixed with 4 mL bicarbonate) was used as anesthetic into the skin and deeper breast tissue up to area of concern in the 6:00 left breast, 2 cm from nipple. Under ultrasound guidance, an 18-gauge spinal needle was advanced into the cyst and aspiration yielded 5 mL of light brown murky cyst fluid. Fluid appearance suggests a benign etiology. The fluid was labeled and sent for laboratory analysis. No clip was placed. Good hemostasis was obtained with direct pressure. No postprocedure mammogram. The patient tolerated the procedure well without any immediate complication. The patient was discharged to home in stable condition. IMPRESSION: Successful ultrasound guided cyst aspiration left breast. Cytology pending. If benign results, six-month follow-up can reassess the mammographic appearance. [facility], , 04/03/2024 3:15 PM. Pathology Results: Result: Benign. LEFT BREAST CYST, ASPIRATION: Focal and rare atypical cells with macrophages and apocrine metaplastic cells (see note). Notes A core tissue biopsy is recommended for further evaluation, as atypical cells are present. Intradepartmental consultation with Dr. Eliezer Bustos is in agreement with the assessment. Overall Assessment: Benign Management: Diagnostic Breast Ultrasound of the left breast in 6 months. Electronically signed and approved by: Zaheer Pat M.D. Radiologist
== END ==
LOC: RADUSWWP 12:35
PROVIDERS: ATTEND Surgery
DX: N60.82 Other benign mammary dysplasias of left breast (principal); R92.8 Other abnormal and inconclusive findings on diagnostic imaging of breast
CPT/HCPCS: 76942; 88173; 88305

== ENCOUNTER → 2024-05-16 | Outpatient (CLI) | payer BC ==
[2024-05-16 12:41] VITALS: BP 134/74; PULSE 69; RESP 16; TEMP 97.8
--- NOTE | 2024-05-16 13:11 | P.GSCN ---
History of Present Illness Consult date: 05/16/24 Reason for Consult: atypical cells left breast aspirate at 6:00 Requesting physician: Kush Abrams History of present illness: Eli is a 49 year old female status post aspiration of a cystic lesion in her left breast at 6:00. This showed some atypical cells. Core needle biopsy was recommended by pathology. The patient had a bilateral mammogram on 03-14-24, this was BIRAD 0 and bilateral ultrasound was recommended. The ultrasound showed a cyst in the right breast and 6 months follow up recommended, and in the left breast several cyst and aspiration was done of the lesion at 6:00. This showed some atypical cells. A clip was not left at this site. 5 cc of murky fluid was aspirated. This was personally reviewed with DR. Morris and discussed. She could feel the lump in her left breast prior to the aspiration. She does not feel any lumps masses or nodules at this time in her breast. She has not had any surgery on her breast. She has not had any recent trauma or infection in her breast. She is not complaining of any nipple discharge or skin changes. Caffeine: occasional pop nicotine: none chocolate: occasional BCP: 10 years in remote past hormones: none Family History: father: prostate cancer Hormonal History: menarche: 15 M1 tubal 1, age at first : 29, breat fed: yes hysterectomy at 48 done for bleeding no cancer, left ovaries Surgical History: hysterectomy foot surger bladder sling at hysterectomy wisdom teeth Medical History: none Social History: nicotine: none alcohol: rare drugs: none Review of Systems - Constitutional Denies fever, Denies weight loss - EENT Eyes: denies blurred vision Ears: deny: decreased hearing, tinnitus Ears, nose, mouth and throat: Denies dysphagia - Breasts bilateral: as per HPI - Cardiovascular Denies chest pain, Denies shortness of breath - Respiratory Denies cough, Denies 7 - Gastrointestinal Reports as per HPI - Genitourinary Genitourinary: Denies dysuria, Denies hematuria Menstruation: Reports post hysterectomy - Musculoskeletal Reports as per HPI - Integumentary Denies rash, Denies unusual bruising - Neurological Denies headaches, Denies syncope - Psychiatric Reports as per HPI - Endocrine Reports as per HPI - Hematologic/Lymphatic Denies easy bleeding, Denies easy bruising - Allergic/Immunologic Reports seasonal allergies Past Medical History Past Medical History: No Reported History History of Any Multi-Drug Resistant Organisms: None Reported Past Surgical History: Hysterectomy, Uterine Ablation Additional Past Surgical History / Comment(s): Left foot surgery. Bladder suspension 2023 Past Anesthesia/Blood Transfusion Reactions: Postoperative Nausea & Vomiting (PONV) Past Psychological History: No Psychological Hx Reported Smoking Status: Former smoker Past Alcohol Use History: None Reported Additional Past Alcohol Use History / Comment(s): quit smoking in college Past Drug Use History: None Reported Medications and Allergies Home Medications Medication Instructions Recorded Confirmed Type Unk Multi Vitamin 1 tab PO DAILY 03/23/23 05/16/24 History Allergies Allergy/AdvReac Type Severity Reaction Status Date / Time ibuprofen Allergy Anaphylaxis Verified 05/16/24 12:38 Surgical - Exam Vital Signs Temp Pulse Resp BP Pulse Ox 97.8 F 69 16 134/74 99 05/16/24 12:39 05/16/24 12:39 05/16/24 12:39 05/16/24 12:39 05/16/24 12:39 - General no distress - Eyes normal ocular movement - ENT no hearing loss - Neck trachea midline - Respiratory normal respiratory effort - Cardiovascular Rhythm: regular Heart Sounds: normal: S1, S2 - Integumentary normal turgor - Neurologic no disoriented, no combative - Musculoskeletal normal gait, normal posture - Psychiatric oriented to time, oriented to person, oriented to place, speech is normal, memory intact Breast Exam: BRA: 36C Inspection: Bilateral grade 2 ptosis Palpation: Right breast: Multi positional exam fibrocystic changes no dominant masses or nodules of concern Right axilla: No adenopathy of concern Left breast: Multi positional exam fibrocystic changes, no dominant masses or nodules of concern particular attention to the 6 o'clock position does not reveal any recurrence of the cyst which was aspirated at that location Left axilla: No adenopathy of concern Results Mammogram and ultrasound personally reviewed and discussed with Dr. Pat from radiology as well as pathology results from cyst aspiration on 04-03-2024 Assessment and Plan Assessment: Impression: Fibrocystic breast changes bilateral breast with cyst aspiration left breast at 6:00 on 04-03-2024 revealing some rare atypical cells Recommendation as per pathology is for a needle core of the area of concern This was discussed with radiology/no clip was left at the site of aspiration therefore the following option would be to repeat an ultrasound and if the area can be delineated an ultrasound core biopsy could be performed Plan: Ultrasound directed needle core biopsy of the area at 6:00 left breast/this will be done personally by Dr. Pat as he is the one familiar with the case and the should be scheduled at his first available convenience If the ultrasound does not reveal anything for biopsy then we will do a repeat left breast mammogram and bilateral breast ultrasound in 6 months Follow-up here after ultrasound-guided needle biopsy of the left breast We have discussed the possibility of getting an MRI and at this time after discussion it is felt that we will wait and see what the ultrasound shows. CC: Dr. Casas
== END ==
LOC: WWCWWP 11:53
PROVIDERS: ATTEND Surgery
DX: Z12.31 Encounter for screening mammogram for malignant neoplasm of breast (principal); N60.12 Diffuse cystic mastopathy of left breast; N60.11 Diffuse cystic mastopathy of right breast; N60.02 Solitary cyst of left breast; Z88.6 Allergy status to analgesic agent

== ENCOUNTER → 2024-06-21 | Outpatient (CLI) | payer BC ==
--- NOTE | 2024-06-21 10:35 | USB ---
Reason for Exam: Follow-up at short interval from prior study. Patient History: Menarche at age 14. First Full-Term at age 26. Patient has history of breast feeding. 04/03/2024, Benign US breast aspiration single LT on the left side. Risk Values: Jessica 5 year model risk: 0.8%. NCI Lifetime model risk: 8.4%. Technique: Method: Targeted. Prior Study Comparison: 05/18/2022 Left MG 3D diag mammo w/cad LT, [facility]. 12/28/2022 Bilateral MG 3D screening mammo w/cad, [facility]. 03/14/2024 Bilateral MG 3D diag mammo w/cad JESUS, [facility]. Findings: The lower section of the breast of the left breast, the axilla of the left breast and the retroareolar of the left breast were scanned. Targeted ultrasound 6:00 position including scanning of the subareolar region and axilla. The location of the previously aspirated cyst. Results showed some focal atypical cells. At the site of aspiration, there is an irregular minimal area of residual fluid measuring 9 mm containing some low-level internal echoes suggesting a collapsed cyst cavity. An adjacent 8 mm cyst is noted and seems to correspond to ultrasound 03/14/2024. No other solid or cystic lesion or axillary adenopathy. Overall Assessment: Suspicious, BI-RAD 4 Management: Ultrasound Core Biopsy of the left breast. [facility], , 06/21/2024 10:32 AM. Electronically signed and approved by: Zaheer Pat M.D. Radiologist
--- NOTE | 2024-06-26 09:05 | MM ---
Reason for Exam: Post Procedure Mammogram. Last screening mammogram was performed 3 month(s) ago. Patient History: Menarche at age 14. First Full-Term at age 26. Patient has history of breast feeding. 04/03/2024, Benign US breast aspiration single LT on the left side. Risk Values: Jessica 5 year model risk: 0.8%. NCI Lifetime model risk: 8.4%. Prior Study Comparison: 05/18/2022 Left MG 3D diag mammo w/cad LT, [facility]. 12/28/2022 Bilateral MG 3D screening mammo w/cad, [facility]. 03/14/2024 Bilateral MG 3D diag mammo w/cad JESUS, [facility]. Tissue Density: Left: The breasts are heterogeneously dense, which may obscure small masses. Pathology Description: Location: 6 o'clock. Marker Left Behind. Needle Type: Mammotome Cores: 5 Gauge: 13 Previous cyst aspiration revealed atypical cells. Targeted scanning along the 6:00 position of the left breast, 2 cm from the nipple again shows a 9 mm deep cyst which serves as a landmark. Just superficial to this region, there is a small 5 mm hypoechoic area within internal echoes, possibly residual cyst, correlating well with the previous aspiration site. This is targeted for biopsy. The procedure of ultrasound guided core biopsy was explained to the patient. Benefits, alternatives, and risks were discussed. An informed consent was then obtained. The patient was placed in supine positioning for imaging and for the procedure. The overlying skin was prepped and draped in usual sterile fashion. Lidocaine buffered with bicarbonate was used as anesthetic into the skin and subcutaneous tissue up to area of concern in the left breast. Under ultrasound guidance, a 13-gauge vacuum assisted mammotome Elite biopsy gun was used to obtain 5 core samples. Following this, a HydroMark butterfly clip was left at the site of biopsy. The patient tolerated the procedure well without any immediate complication. The patient was kept in the radiology department for short stay after the procedure and then discharged home in stable condition. Postprocedure mammogram: The patient was transferred to mammography for physician ordered post procedure mammogram for clip placement verification. Post procedure mammogram shows clip at the central 6:00 position anteriorly at the site of previous mammographic cyst which was aspirated back on 04/03/2024. IMPRESSION: Successful, uncomplicated ultrasound guided core biopsy of tissue at the site of previous cyst aspiration which revealed atypical cells. Clip position on the postprocedure mammogram confirms location accuracy. Full pathology results to follow. [facility], , 06/21/2024 12:27 PM. Pathology Results: Result: Benign, Fibrocystic change. Pathology and radiology were reviewed. Findings are concordant. LEFT BREAST, 6:00 2 CM FROM NIPPLE, NEEDLE CORE BIOPSY: Benign breast with fibrocystic changes including cysts and fibrosis. Overall Assessment: Benign Assessment: MG diagnostic mammo LT wo CAD. - Left: Benign, BI-RAD 2. Management: Diagnostic Breast Ultrasound of the left breast in 6 months. Electronically signed and approved by: Zaheer Pat M.D. Radiologist
== END | disposition home or self-care (01) ==
LOC: RADUSWWP 10:03
PROVIDERS: ATTEND Surgery
DX: R92.8 Other abnormal and inconclusive findings on diagnostic imaging of breast (principal); R92.332 Mammographic heterogeneous density, left breast
CPT/HCPCS: 77065

== ENCOUNTER → 2024-06-21 | Day surgery (SDC) | payer BC | LOC: RADUSWWP 10:31 | PROVIDERS: ATTEND Surgery | DX: Z53.8 Procedure and treatment not carried out for other reasons (principal); R92.8 Other abnormal and inconclusive findings on diagnostic imaging of breast | CPT/HCPCS: 88305 ==